=== PATIENT | female | born 1960 | race Caucasian/White ===

== ENCOUNTER 2017-06-17 10:39 | Outpatient (CLI) | payer MEDICARE, MEDICAID ==
[~2017-06-17 10:39] MED LIST: ASPI-1265 PO; CALC-216 PO; CHOL100046 PO; CLON1TAB4 PO; CYCL-1 PO; HALO1TAB PO; IBUP-1985 PO; LEVE750T6 PO; LEVO50TA8 PO; MAGN400C PO; MULT1TAB74 PO; RISP4TAB7 PO; SIMV10TA6 PO; SOTA80TA69 PO
[2017-06-17] MEDS ORDERED: gadopentetate dimeglumine 7.5 MMOL/15 ML syringe ONE (10:47)
== END 2017-06-17 23:59 | disposition home or self-care (01) ==
LOC: RAD 10:39
PROVIDERS: ATTEND Obstetrics & Gynecology
DX: D49.6 Neoplasm of unspecified behavior of brain (principal); Z98.890 Other specified postprocedural states
CPT/HCPCS: 70553; A9579

== ENCOUNTER 2017-09-16 13:02 | Outpatient (CLI) | payer OTHER, MEDICARE, MEDICAID ==
[~2017-09-16 13:02] MED LIST changes: +CLON-371 PO; -CLON1TAB4 PO; -SOTA80TA69 PO; +SOTA80TA73 PO
== END 2017-09-16 23:59 | disposition home or self-care (01) ==
LOC: RAD 13:02
PROVIDERS: ATTEND Psychiatry & Neurology Neurology
DX: M47.892 Other spondylosis, cervical region (principal); M48.02 Spinal stenosis, cervical region
CPT/HCPCS: 72141